=== PATIENT | male | born 1960 | race Hispanic/Latino ===

== ENCOUNTER 2017-07-02 10:09 | Emergency (ER) | payer SELFPAY ==
[2017-07-02] MEDS ORDERED: TETANUS/DIPHTHERIA TOXOID [ADULT] 0.5 ML VIAL IM ONE (10:22)
[2017-07-02] MEDS ORDERED: OCTYL 2-CYANOACRYLATE 1 EACH TP ONE (10:23)
== END 2017-07-02 10:47 | disposition home or self-care (01) ==
LOC: EDH 10:09
DX: S61.412A Laceration without foreign body of left hand, initial encounter (principal); I10 Essential (primary) hypertension; W27.8XXA Contact with other nonpowered hand tool, initial encounter; Y93.89 Activity, other specified; Y92.098 Other place in other non-institutional residence as the place of occurrence of the external cause; Y99.8 Other external cause status
CPT/HCPCS: 12042; 90471; 90714